=== PATIENT | male | born 1980 | race Caucasian/White ===

== ENCOUNTER 2018-12-22 08:40 | Emergency (ER) | payer BC, SELFPAY ==
[2018-12-22 08:41] VITALS: BP 152/95; PULSE 82; RESP 16; TEMP 36.7; O2SAT 99; BMI 26.7
--- NOTE | 2018-12-22 08:52 | CT_ITS ---
STUDY: CT ABDOMEN AND PELVIS WITHOUT CONTRAST REASON FOR EXAM: Male, 38 years old. Right flank pain. 3 week history of intermittent urinary difficulty. RADIATION DOSAGE (If Supplied By Facility): CTDIvol = ( 8.20 ) mGy, DLP = ( 485.83 ) mGycm TECHNIQUE: Transaxial images were obtained from the dome of the diaphragm to the symphysis pubis without oral contrast, and without intravenous contrast. Sagittal and coronal images were reconstructed. Individualized dose optimization techniques were used for this CT. COMPARISON: None. FINDINGS: The visualized lung bases are unremarkable. The visualized portions of the heart are within normal limits. Normal liver. Normal gallbladder and extrahepatic biliary system. Normal spleen. Normal pancreas. Normal bilateral adrenal glands. There is a 3.5 mm calculus in the distal portion of the right ureter just proximal to the ureterovesical junction. Mildly dilated right ureter. 3.6 mm calculus in the upper pole calyx of the left kidney. There is a small hiatal hernia. Normal small intestine. Normal colon. There are surgical clips in the region of the appendix consistent with a prior appendectomy. Small mesenteric lymph nodes are seen in the right lower quadrant. Normal abdominal aorta. Normal inferior vena cava. Normal retroperitoneum. Normal urinary bladder. Normal abdominal wall. Normal osseous structures. CT/Abdomen/Pelvis without Cont IMPRESSION: 3.5 mm calculus in the distal portion of the right ureter just proximal to the right ureterovesical junction. 3.6 mm nonobstructive calculus in the upper pole calyx of the left kidney. Electronically Signed: Matheus Fam MD at 9:42 EST , Service support ,
--- NOTE | 2018-12-22 08:56 | ED.DCSUM_ITS ---
- ER Visit Summary Date of Service: 12/22/18 Chief Complaint: Right flank pain History of Present Illness: The patient is a [address] prior kidney stone and gout. Also prior appendectomy. States in the last 3 weeks he had a couple episodes of right flank pain. Today it was more severe and radiated into his right groin. He denies any nausea, vomiting, diarrhea or fever. No hematuria or dysuria. No fever. Currently states his pain is not bad at all. Physical Examination: Well-appearing middle-age male. Vital signs are stable. He is afebrile. He does not look septic or toxic. He is in no acute distress. His is at bedside. HEENT exam unremarkable. Neck nontender no lymphadenopathy. Lungs clear to auscultation bilaterally. Heart regular rate and rhythm no murmur. Abdomen is soft and nontender. Normal bowel sounds no peritoneal signs. Extremities moves all 4. Neurovascularly intact. Back is nontender. External exam is nontender. Neurologically is awake and alert with no focal motor deficits. Test Results: Chemistry normal gap 5 creatinine 1.1. Urinalysis showed 150 macro blood 10-25 microscopic. No white cells. No nitrates. Urine consistent with kidney stone. CT flank study without contrast showed a 3.5 mm calculus in the distal right ureter just proximal to the right UVJ. No significant hydroureter or hydronephrosis. There is also a kidney stone seen in the left kidney. Emergency Department Course and Treatment: Patient with right flank pain with a prior kidney stone. CT flank place urinalysis and chemistry panel will be obtained. Currently patient does not want or need anything for pain. Patient doing well on repeat exam at 10 AM. Currently is not having any significant pain. Will be treated home with Toradol. Urine strainer. We went over all his test results. Treatment Plan: Toradol for pain. Strain his urine. Disposition: Discharge Impression: Acute right flank pain secondary to a 3.5 mm right distal ureteral calculi This note was generated with [place] dictation software. It may contain incorrect words, spelling, and punctuation that were not noted in review of the chart prior to signing ED Disposition - Plan for ED Patient: Referrals: Care Physician,No Primary [NON-STAFF] -
[2018-12-22 09:03] LABS: Color, Urine Yellow (Yellow); Glucose, Dipstick Normal (Normal); Ketone-Dipstick 5 mg/dl (Negative); Leukocyte Esterase-Dipstick Negative /ul (Negative); Nitrite-Dipstick Negative (Negative); Occult Blood-Urine 150 /ul (Negative); Protein-Dipstick 15 mg/dl (Negative); Specific Gravity, Urine 1.025 (1.002-1.030); Urine Bilirubin Dipstick Negative (Negative); Urine Clarity Clear (Clear); Urine Urobilinogen 1 mg/dl (Normal)
[2018-12-22 09:13] LABS: Bacteria 1+ /hpf (None Seen); Mucous, Urine 2+ /hpf (<or=2+); Red Blood Cells-Urine 10-25 SEEN /hpf (0-5); Squamous Epithelial Cells - UA 0-5 SEEN /hpf (0-5); White Blood Cells 0-5 SEEN /hpf (0-5)
[2018-12-22 09:20] LABS: Anion Gap 5 (5-15); BUN 13 mg/dL (7-18); BUN/Creat Ratio 11.3 RATIO (10-20); Calcium,Total 9.3 mg/dL (8.5-10.1); Chloride 107 mmol/L (98-107); Creatinine, Serum 1.15 mg/dL (0.70-1.30); EST Glomerular Filtration Rate 75 mL/min (>60); Est Glom Filt Rate - Afr Amer 91 mL/min (>60); Estimated Creatinine Clearance 104.83 ml/min; Glucose 97 mg/dL (74-106); Potassium 4.3 mmol/L (3.5-5.1); Sodium Level 141 mmol/L (136-145)
--- NOTE | 2018-12-22 10:15 | ED.DEP ---
ED Disposition - Plan for ED Patient: Disposition: Home or Assisted Living Instructions: ED Stone Renal W Colic Prescriptions: Ketorolac [Toradol] 10 mg PO Q4H #7 tab Referrals: Care Physician,No Primary [NON-STAFF] - Antonio Gallardo MD [STAFF PHYSICIAN] - 3-5 Days if not improving Additional Instructions: You have a 3-1/2 mm kidney stone just above your bladder on the right. This should pass. Toradol for pain. You may use Motrin but if he uses Motrin do not use Toradol and Motrin together. They are both anti-inflammatories. Strain your urine for passed stone. Plenty of fluids. Follow-up with the urologist Dr. Jovani Gallardo if not improving.
== END 2018-12-22 10:35 | disposition home or self-care (01) ==
PROVIDERS: Emergency Provider Emergency Medicine; Family Provider Family Medicine; PCP Family Medicine
DX: N20.2 Calculus of kidney with calculus of ureter (principal); Z72.0 Tobacco use
CPT/HCPCS: 74176; 80048; 81001; 99283; A4216

== ENCOUNTER → 2019-05-28 10:00 | Outpatient (CLI) | payer BC, SELFPAY ==
[2019-05-28 11:18] LABS: Absolute Lymphocyte Count 2.02 X10^3/uL (0.83-4.51); Absolute Neutrophil Count 3.9 X10^3/uL (2.0-7.7); Basophil# 0.06 X10^3/uL; Basophil% 0.9 % (0-1); Eosinophil# 0.22 X10^3/uL; Eosinophils% 3.2 % (0-5); Hematocrit 48.1 % (40-54); Hemoglobin 16.2 g/dL (13.0-16.5); Lymphocyte # 2.02 X10^3/ul (4.0); Lymphocyte % 29.8 % (19-41); Mean Corp Hgb Conc 33.7 g/dL (32-36); Mean Corpuscular Hgb 31.5 pg (27.0-32.0); Mean Corpuscular Volume 93.6 fL (80-94); Mean Platelet Vol. 10.7 fl (6.2-12.0); Monocyte# 0.52 X10^3/uL; Monocyte% 7.7 % (0-10); NRBC Flagged by Analyzer 0 % (0-5); Neutrophil # 3.94 X10^3/uL (2.7-7.7); Neutrophil % 58.1 % (47-70); Platelet Count 205 K/mm3 (150-450); RBC Distribution Width CV 12.5 % (11.6-14.6); RBC Distribution Width SD 42.8 fl (35.1-43.9); Red Blood Count 5.14 M/mm3 (4.6-6.2); White Blood Count 6.8 K/mm3 (4.4-11.0)
[2019-05-28 11:22] LABS: ALB/GLOB Ratio 1.1 RATIO (0.9-2.4); AST(SGOT) 25 U/L (15-37); Alanine Aminotransfer ALT/SGPT 43 U/L (16-61); Albumin, Serum 3.7 g/dL (3.2-5.0); Alkaline Phosphatase 67 U/L (45-117); Anion Gap 4 (5-15); BUN 9 mg/dL (7-18); BUN/Creat Ratio 8.7 RATIO (10-20); Calcium,Total 8.9 mg/dL (8.5-10.1); Chloride 107 mmol/L (98-107); Cholesterol 233 mg/dL (200); Creatinine, Serum 1.04 mg/dL (0.70-1.30); EST Glomerular Filtration Rate 84 mL/min (>60); Est Glom Filt Rate - Afr Amer 101 mL/min (>60); Globulin 3.4 g/dL (2.2-4.2); Glucose 90 mg/dL (74-106); High Density Lipoprotein 38 mg/dL; Potassium 3.9 mmol/L (3.5-5.1); Protein, Total 7.1 g/dL (6.4-8.2); Sodium Level 140 mmol/L (136-145); Triglycerides 169 mg/dL; Uric Acid 9.8 mg/dL (3.5-7.2); Very Low Density Lipoprotein 34 mg/dL (5-40)
== END ==
PROVIDERS: Family Provider Family Medicine; PCP Family Medicine; Referring Provider Family Medicine; Visit Provider Family Medicine
DX: Z00.00 Encounter for general adult medical examination without abnormal findings (principal); M10.9 Gout, unspecified
CPT/HCPCS: 36415; 80053; 80061; 84550; 85025

== ENCOUNTER 2021-02-10 14:02 | Outpatient (RCR) | payer BC, SELFPAY | END 2021-04-18 23:59 | LOC: IMMUN 14:02 | PROVIDERS: PCP Family Medicine; Referring Provider Family Medicine; Visit Provider Family Medicine | DX: Z23 Encounter for immunization (principal) | CPT/HCPCS: 0001A; 0002A; 91300 ==

== ENCOUNTER → 2021-06-13 07:27 | Outpatient (CLI) | payer BC, SELFPAY ==
[2021-06-13 08:59] LABS: ALB/GLOB Ratio 1.1 RATIO (0.9-2.4); AST(SGOT) 18 U/L (15-37); Alanine Aminotransfer ALT/SGPT 34 U/L (16-61); Albumin, Serum 3.9 g/dL (3.2-5.0); Alkaline Phosphatase 62 U/L (45-117); Anion Gap 3 (5-15); BUN 10 mg/dL (7-18); Calcium,Total 8.6 mg/dL (8.5-10.1); Chloride 106 mmol/L (98-107); Cholesterol 216 mg/dL (200); EST Glomerular Filtration Rate 87 mL/min (>60); Est Glom Filt Rate - Afr Amer 105 mL/min (>60); Globulin 3.4 g/dL (2.2-4.2); Glucose 99 mg/dL (74-106); High Density Lipoprotein 40 mg/dL; Potassium 3.7 mmol/L (3.5-5.1); Protein, Total 7.3 g/dL (6.4-8.2); Sodium Level 141 mmol/L (136-145); Triglycerides 128 mg/dL; Uric Acid 6.1 mg/dL (3.5-7.2); Very Low Density Lipoprotein 26 mg/dL (5-40)
== END ==
PROVIDERS: PCP Family Medicine; Referring Provider Family Medicine; Visit Provider Family Medicine
DX: Z00.00 Encounter for general adult medical examination without abnormal findings (principal); M10.9 Gout, unspecified; N20.9 Urinary calculus, unspecified
CPT/HCPCS: 36415; 80053; 80061; 82360; 84550

== ENCOUNTER 2021-07-14 05:28 | Day surgery (SDC) | payer BC, SELFPAY ==
[2021-07-14 05:55] VITALS: BP 137/78; PULSE 67; RESP 16; TEMP 36.7; O2SAT 100; BMI 23.3
[2021-07-14] MEDS: Lactated Ringers 1,000 ML 100 ML IV (06:09)
--- NOTE | 2021-07-14 06:09 | PCM.HP.BLA ---
History and Physical Date of Admission: 07/14/21 Intake Visit Reasons: Hernia Chief Complaint: bilat inguinal hernia Team Leader Required: No Is patient in pain?: No Allergies No Known Allergies Allergy (Verified 07/11/21 14:19) [facility] Medical History Bilateral inguinal hernia Gout Surgical History S/P appendectomy Family History Mother Diabetes Social History Smoking Status: Never smoker alcohol intake: never substance use type: does not use caffeine: Yes seatbelt use: always do you feel safe at home: Yes HPI HPI HPI: WENDY CABALLERO, is a 40 M who presents to the office today for surgical consultation regarding an inguinal hernia. The patient is referred by Dr. Renny Monique with a tentative diagnosis of bilateral inguinal hernias. A written copy of my surgical consult recommendations will return to him. The patient states that he has known about these hernias now for multiple years. At least 4 years and that he saw me when I was at the [facility]. 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 Recently however the right inguinal hernias become much more symptomatic. It is larger than the left but both are problematic. In addition he wanted to discuss the change of bowel habits. He describes his stool is more narrow and curvilinear in caliber. He has never had a colonoscopy. There is no suggestion of bright red blood. He has not had COVID-19. He has been vaccinated. He occasionally has nocturia. ROS General General: No weight change, appetite, fatigue, colon cancer, breast cancer or weakness HEENT HEENT: No difficulty swallowing, eye injury, eye surgery, swollen glands or hoarseness Endo Endocrine: No thyroid disease, diabetes mellitus, thyroid cancer, Hair loss, heat intolerance or cold intolerance Skin Skin: No rash or changing moles Breast Breast: No left breast lump, right breast lump, nipple discharge, breast pain, abnormal mammogram, abnormal US or breast enlargement Musc Musculoskeletal: Yes gout; No back problems, arthritis, rheumatoid arthritis or joint pain Cardio Cardiovascular: No murmur, pacemaker, heart disease, atrial fibrillation, high blood pressure, heart attack, heart stent, palpitations, shortness of breat with exertion or chest pain Psych Psychiatric: No depression, anxiety or hearing voices Resp Respiratory: No shortness of breath, No sleep apnea, No cough, No COPD, No asthma, No emphysema and No wheezing Gastro Gastrointestinal: Yes abdominal pain, No nausea or vomiting, No diarrhea, No constipation, No blood in stool, No acid reflux, No hemorrhoids, No ulcers, No gallbladder problem and No black,tarry stools [place] Hematologic: No blood thinners, No blood disorders, No bleeding, No anemia and No blood clots Neuro Neurologic: No system reviewed and no additional complaints, except as documented, No as per HPI, No abnormal gait, No abnormal hearing, No abnormal movements, No abnormal speech, No behavioral changes, No burning sensations, No confusion, No convulsions, No disequilibrium, No dizziness, No localized weakness, No frequent falls, No headache(s), No lack of coordination, No loss of vision, No memory loss, No numbness, No other visual disturbances, No radicular pain, No restless legs, No sensory deficit, No syncope, No tingling, No tremor(s), No weakness and No other Exam Const General: cooperative, healthy appearing, comfortable and no acute distress Nutritional Appearance: average body habitus Orientation: awake [facility] Head: normal to inspection Eyes General: appearance normal, both eyes and all related structures Neck Neck: normal visual inspection Chest Chest palpation & inspection: normal inspection of the chest Resp Effort & Inspection: normal respiratory effort Auscultation: clear to auscultation bilaterally Cardio Rate: regular rate Rhythm: regular rhythm GI Palpation: soft and no hepatosplenomegaly Other: Testicles are descended, slight varicocele on the left, significant right inguinal defect still reducible, slightly smaller and reducible left inguinal defect, mild bilateral groin folliculitis from here trimming Musc Cervical Spine: normal cervical lordosis Skin Other: Bilateral groin folliculitis Neuro General: patient alert and patient awake Extrem General: no calf tenderness Psych Appearance: grossly normal COVID (Procedure Consent) Procedure Criteria Procedure Criteria: Yes Elective The surgeon/proceduralist and patient have discussed in detail the risk of exposure to and/or potential harm posed by the COVID-19 virus with having a surgery/procedure at this time versus the risk of delaying the surgery/procedure. It is not possible to know either the risk of delaying the surgery or procedure or chance of getting an infection with perfect accuracy, but a joint decision was made between the patient and the surgeon/proceduralist to proceed at this time with the scheduled surgery/procedure as indicated on the consent form. Assessment and Plan Assessment and Plan (1) Hernia: (2) Change in bowel habit: Status: Acute (3) Bilateral inguinal hernia: Status: Acute Qualifiers: Obstruction and gangrene presence: without obstruction or gangrene Recurrence: non-recurrent Qualified Code(s): K40.20 - Bilateral inguinal hernia, without obstruction or gangrene, not specified as recurrent Plan - Dr. Ren Victoria MD: 40-year-old gentleman with change of bowel caliber. I recommend him a colonoscopy with possible biopsy or polypectomy as indicated. I described the technique, benefit, risk, alternatives. We will try to schedule and expedite the patient's care. The patient has bilateral groin folliculitis. For potential upcoming bilateral inguinal hernia surgery I recommend ceasing his shaving for the time being to help reduce this inflammatory change The patient has mild nocturia. I will initiate tamsulosin therapy 0.4 mg nightly to assist with the potential postoperative urinary retention. I recommended the patient laparoscopic bilateral inguinal hernia repair. I have discussed technique, benefit, risk, alternatives. He has had an opportunity to ask and have questions answered. 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 He is comfortable with this and would like to schedule and proceed as noted. I appreciate the opportunity of assisting with the surgical care Copy: Dr. Renny Victoria M.D., F.A.C.S. Insert H&P no changes Ren Victoria M.D., F.A.C.S.
--- NOTE | 2021-07-14 06:30 | COLBX_PTH ---
PATIENT: WENDY CABALLERO LOC: EN U#:[id number] AGE/SX: 40/M ROOM: RE07/14/[address]: Dr. Ren Victoria MD : 1980 BED: DIS: 07/14/2021 SPEC #: [id number] RECD: 07/14/21 10:50 STATUS: MADDIE DUFFYZoraida #: [id number] ADELOS: 07/14/21 06:[address]: Ren Victoria DEPT: SURGICAL PATHOLOGY RECD BY: Charo August ENTERED: 07/14/21 11:07 SP TYPE: COLON BX OTHR DR: Dr. Renny Monique DO Tissues: Transverse colon Procedures: Surgery Specimen Level IV HEADER OPERATION: Colonoscopy (MAC) PRE-OP DIAGNOSIS: Change in bowel habit, bilateral inguinal hernia TISSUE SUBMITTED: Biopsy of proximal transverse colon MICROSCOPIC DIAGNOSIS Proximal transverse colon, biopsy: Tubular adenoma. AM:am 9/7/21 MICROSCOPIC DESCRIPTION Slides are reviewed. GROSS DESCRIPTION Received in fixative is one container labeled with the patient's name and designated biopsy of proximal transverse colon. The specimen consists of multiple irregular fragments of light liang soft tissue that in aggregate measure 0.5 x 0.5 x 0.1 cm. The specimen is totally submitted in one cassette. / AM:moy 07/14/2021 TC:5 CPT: 66144
[2021-07-14 06:50] VITALS: BP 137/78; BP 81/56; PULSE 71; RESP 16; TEMP 36.1; O2SAT 94
--- NOTE | 2021-07-14 06:51 | OP.COLON_ITS ---
Patient Name: Jorge Quintanilla Procedure Date: 07/14/2021 6:17 AM Date of : 1980 Age: 40 Procedure: Colonoscopy Indications: Screening for colorectal malignant neoplasm Providers: Ren Victoria MD Medicines: See the Anesthesia note for documentation of the administered medications Patient Profile: Last Colonoscopy: none. The patient's first colonoscopy is today. Complications: No immediate complications. Procedure: Pre-Anesthesia Assessment: - Prior to the procedure, a History and Physical was performed, and patient medications and allergies were reviewed. The patient's tolerance of previous anesthesia was also reviewed. The risks and benefits of the procedure and the sedation options and risks were discussed with the patient. All questions were answered, and informed consent was obtained. Prior Anticoagulants: The patient has taken no previous anticoagulant or antiplatelet agents. ASA Grade Assessment: I - A normal, healthy patient. After reviewing the risks and benefits, the patient was deemed in satisfactory condition to undergo the procedure. After I obtained informed consent, the scope was passed under direct vision. Throughout the procedure, the patient's blood pressure, pulse, and oxygen saturations were monitored continuously. The Colonoscope was introduced through the anus and advanced to the cecum, identified by appendiceal orifice and ileocecal valve. The colonoscopy was performed without difficulty. The patient tolerated the procedure well. The quality of the bowel preparation was good. The ileocecal valve and the appendiceal orifice were photographed. Scope In: 6:30:58 AM Scope Withdrawal Time 0 hours 10 minutes 11 seconds Scope Out: 6:45:11 AM Total Procedure Duration Time 0 hours 14 minutes 13 seconds Findings: The digital rectal exam findings include non-thrombosed internal hemorrhoids and internal hemorrhoids that prolapse with straining, but spontaneously regress to the resting position (Grade II). Pertinent negatives include normal prostate (size, shape, and consistency). A 5 mm polyp was found in the proximal transverse colon. The polyp was sessile. The polyp was removed with a cold biopsy forceps. Resection and retrieval were complete. A few diverticula were found in the sigmoid colon. The exam was otherwise without abnormality. Impression: - Non-thrombosed internal hemorrhoids and internal hemorrhoids that prolapse with straining, but spontaneously regress to the resting position (Grade II) found on digital rectal exam. - One 5 mm polyp in the proximal transverse colon, removed with a cold biopsy forceps. Resected and retrieved. - Diverticulosis in the sigmoid colon. - The examination was otherwise normal. Recommendation: - Discharge patient to home. - Resume previous diet. - Continue present medications. - Repeat colonoscopy in 5 years for surveillance. - Telephone my office for pathology results in 1 week. Procedure Code(s): --- Professional --- 37925, Colonoscopy, flexible; with biopsy, single or multiple Diagnosis Code(s): --- Professional --- Z12.11, Encounter for screening for malignant neoplasm of colon K64.1, Second degree hemorrhoids D12.3, Benign neoplasm of transverse colon (hepatic flexure or splenic flexure) K57.30, Diverticulosis of large intestine without perforation or abscess without bleeding CPT copyright 2017 [employer]. All rights reserved. The codes documented in this report are preliminary and upon artillery officer review may be revised to meet current compliance requirements. Ren Victoria MD 07/14/2021 6:50:32 AM This report has been signed electronically. Number of Addenda: 0 Note Initiated On: 07/14/2021 6:17 AM
--- NOTE | 2021-07-14 06:52 | OP.CCLET_ITS ---
07/14/2021 Renny Monique [address] [place] [address] Re : Colonoscopy procedure for Jorge Quintanilla Dear Dr. Monique This procedure was performed on Wednesday, July 14, 2021. My impressions and recommendations are as follows: Impressions : - Non-thrombosed internal hemorrhoids and internal hemorrhoids that prolapse with straining, but spontaneously regress to the resting position (Grade II) found on digital rectal exam. - One 5 mm polyp in the proximal transverse colon, removed with a cold biopsy forceps. Resected and retrieved. - Diverticulosis in the sigmoid colon. - The examination was otherwise normal. Recommendations : - Discharge patient to home. - Resume previous diet. - Continue present medications. - Repeat colonoscopy in 5 years for surveillance. - Telephone my office for pathology results in 1 week. My findings are described in the full procedure note, which is enclosed. If I can be of further assistance, please feel free to contact me at Doctor phone number(s): Work: . Sincerely, Ren Victoria MD 07/14/2021 6:50:32 AM This report has been signed electronically.
[2021-07-14 06:55] VITALS: BP 137/78; BP 80/57; PULSE 66; RESP 16; O2SAT 95
[2021-07-14 07:00] VITALS: BP 137/78; BP 98/84; PULSE 70; RESP 18; O2SAT 99
[2021-07-14 07:05] VITALS: BP 107/77; BP 137/78; PULSE 59; RESP 18; TEMP 36.6; O2SAT 100
[2021-07-14 07:14] VITALS: BP 137/78
== END 2021-07-14 07:21 | disposition home or self-care (01) ==
LOC: EN 05:29 → AC 05:31
PROVIDERS: PCP Family Medicine; Referring Provider Family Medicine; Visit Provider Surgery
PROC: 0DJD8ZZ Inspection of Lower Intestinal Tract, Via Natural or Artificial Opening Endoscopic (ICD-10-PCS; CPT 45378; principal; 2021-07-14 06:25)
DX: Z12.11 Encounter for screening for malignant neoplasm of colon (principal); D12.3 Benign neoplasm of transverse colon; K64.1 Second degree hemorrhoids; K57.30 Diverticulosis of large intestine without perforation or abscess without bleeding; K40.20 Bilateral inguinal hernia, without obstruction or gangrene, not specified as recurrent; Z87.891 Personal history of nicotine dependence
CPT/HCPCS: 45380; 88305; J7120; J2405

== ENCOUNTER 2021-07-26 05:58 | Day surgery (SDC) | payer BC, SELFPAY ==
[2021-07-26] VITALS (7 sets, daily range): BP systolic 124–137; BP diastolic 72–100; PULSE 66–95; RESP 16; TEMP 36.2–36.9; O2SAT 95–100; BMI 23.6
[2021-07-26] MEDS: Lactated Ringers 1,000 ML 100 ML IV ×2 (06:52→09:02)
--- NOTE | 2021-07-26 06:55 | PCM.HP.BLA ---
History and Physical Date of Admission: 07/26/21 Intake Visit Reasons: Hernia Chief Complaint: bilat inguinal hernia Software Applications Architect Required: No Is patient in pain?: No Allergies No Known Allergies Allergy (Verified 07/11/21 14:19) [facility] Medical History Bilateral inguinal hernia Gout Surgical History S/P appendectomy Family History Mother Diabetes Social History Smoking Status: Never smoker alcohol intake: never substance use type: does not use caffeine: Yes seatbelt use: always do you feel safe at home: Yes HPI HPI HPI: WENYD CABALLERO, is a 40 M who presents to the office today for surgical consultation regarding an inguinal hernia. The patient is referred by Dr. Renny Monique with a tentative diagnosis of bilateral inguinal hernias. A written copy of my surgical consult recommendations will return to him. The patient states that he has known about these hernias now for multiple years. At least 4 years and that he saw me when I was at the [facility]. 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 Recently however the right inguinal hernias become much more symptomatic. It is larger than the left but both are problematic. In addition he wanted to discuss the change of bowel habits. He describes his stool is more narrow and curvilinear in caliber. He has never had a colonoscopy. There is no suggestion of bright red blood. He has not had COVID-19. He has been vaccinated. He occasionally has nocturia. ROS General General: No weight change, appetite, fatigue, colon cancer, breast cancer or weakness HEENT HEENT: No difficulty swallowing, eye injury, eye surgery, swollen glands or hoarseness Endo Endocrine: No thyroid disease, diabetes mellitus, thyroid cancer, Hair loss, heat intolerance or cold intolerance Skin Skin: No rash or changing moles Breast Breast: No left breast lump, right breast lump, nipple discharge, breast pain, abnormal mammogram, abnormal US or breast enlargement Musc Musculoskeletal: Yes gout; No back problems, arthritis, rheumatoid arthritis or joint pain Cardio Cardiovascular: No murmur, pacemaker, heart disease, atrial fibrillation, high blood pressure, heart attack, heart stent, palpitations, shortness of breat with exertion or chest pain Psych Psychiatric: No depression, anxiety or hearing voices Resp Respiratory: No shortness of breath, No sleep apnea, No cough, No COPD, No asthma, No emphysema and No wheezing Gastro Gastrointestinal: Yes abdominal pain, No nausea or vomiting, No diarrhea, No constipation, No blood in stool, No acid reflux, No hemorrhoids, No ulcers, No gallbladder problem and No black,tarry stools [place] Hematologic: No blood thinners, No blood disorders, No bleeding, No anemia and No blood clots Neuro Neurologic: No system reviewed and no additional complaints, except as documented, No as per HPI, No abnormal gait, No abnormal hearing, No abnormal movements, No abnormal speech, No behavioral changes, No burning sensations, No confusion, No convulsions, No disequilibrium, No dizziness, No localized weakness, No frequent falls, No headache(s), No lack of coordination, No loss of vision, No memory loss, No numbness, No other visual disturbances, No radicular pain, No restless legs, No sensory deficit, No syncope, No tingling, No tremor(s), No weakness and No other Exam Const General: cooperative, healthy appearing, comfortable and no acute distress Nutritional Appearance: average body habitus Orientation: awake [facility] Head: normal to inspection Eyes General: appearance normal, both eyes and all related structures Neck Neck: normal visual inspection Chest Chest palpation & inspection: normal inspection of the chest Resp Effort & Inspection: normal respiratory effort Auscultation: clear to auscultation bilaterally Cardio Rate: regular rate Rhythm: regular rhythm GI Palpation: soft and no hepatosplenomegaly Other: Testicles are descended, slight varicocele on the left, significant right inguinal defect still reducible, slightly smaller and reducible left inguinal defect, mild bilateral groin folliculitis from here trimming Musc Cervical Spine: normal cervical lordosis Skin Other: Bilateral groin folliculitis Neuro General: patient alert and patient awake Extrem General: no calf tenderness Psych Appearance: grossly normal COVID (Procedure Consent) Procedure Criteria Procedure Criteria: Yes Elective The surgeon/proceduralist and patient have discussed in detail the risk of exposure to and/or potential harm posed by the COVID-19 virus with having a surgery/procedure at this time versus the risk of delaying the surgery/procedure. It is not possible to know either the risk of delaying the surgery or procedure or chance of getting an infection with perfect accuracy, but a joint decision was made between the patient and the surgeon/proceduralist to proceed at this time with the scheduled surgery/procedure as indicated on the consent form. Assessment and Plan Assessment and Plan (1) Hernia: (2) Change in bowel habit: Status: Acute (3) Bilateral inguinal hernia: Status: Acute Qualifiers: Obstruction and gangrene presence: without obstruction or gangrene Recurrence: non-recurrent Qualified Code(s): K40.20 - Bilateral inguinal hernia, without obstruction or gangrene, not specified as recurrent Plan - Dr. Ren Victoria MD: 40-year-old gentleman with change of bowel caliber. I recommend him a colonoscopy with possible biopsy or polypectomy as indicated. I described the technique, benefit, risk, alternatives. We will try to schedule and expedite the patient's care. The patient has bilateral groin folliculitis. For potential upcoming bilateral inguinal hernia surgery I recommend ceasing his shaving for the time being to help reduce this inflammatory change The patient has mild nocturia. I will initiate tamsulosin therapy 0.4 mg nightly to assist with the potential postoperative urinary retention. I recommended the patient laparoscopic bilateral inguinal hernia repair. I have discussed technique, benefit, risk, alternatives. He has had an opportunity to ask and have questions answered. 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 He is comfortable with this and would like to schedule and proceed as noted. I appreciate the opportunity of assisting with the surgical care Copy: Dr. Renny Victoria M.D., F.A.C.S. I have re-examined the patient. There are no clinical changes since date of exam. Ren Victoria M.D., F.A.C.S.
--- NOTE | 2021-07-26 06:56 | EX.PCM.DISCH ---
Discharge Instructions Procedure General Surgery Diet Discharge Diet: Light diet - advance as tolerated (if you have questions about your diet instructions, please talk to you doctor.) Activity Discharge Activity: May Not Drive (for 3-5 days or while taking narcotic pain medicine.) May shower in (days): 1 Lifting Restrictions: 10 pounds Dressing / Incision Call your doctor if your incision/area has: Continuous Slow Oozing, Sudden Increased Bleeding, Increased Pain/ Swelling, Increased Redness and Foul Smelling Discharge Call your doctor if you observe: Fever of 101 or Higher Suture Line Care: Avoid Pulling/Pushing and Avoid Pinching/Bending Additional Dressing/Incision Instructions:: Change or remove dressing in 4 days. Leave steri-strips in place for 1 week. Follow Up Care Please Follow Up With: Ren Victoria MD When: Call [phone] to make an appointment to be seen in about 10 days. Test Results: Test results from this visit will be discussed in further detail at your follow-up appointment, if applicable. Discharge Plan Admission Primary Reason for Your Visit: Bilateral inguinal hernias Attending Provider: Ren Victoria Primary Care Provider: Renny Monique Discharge Orders/Prescriptions Prescriptions: No Action tamsulosin [Flomax] 0.4 mg capsule 0.4 mg PO QHS Qty: 30 RF: 0 allopurinol 100 MG tablet 100 mg PO DAILY RF: 0 escitalopram oxalate [Lexapro] 10 mg Tablet 10 mg PO DAILY RF: 0 Referrals / Follow Up: Renny Monique DO [Primary Care Provider] - Disposition Disposition (needs filled in before D/C Order can be placed): Home, Self Care
[2021-07-26] MEDS: Cefazolin 2 GM in 0.9% Normal Saline 100 ML IV (07:19)
[2021-07-26] MEDS: Bupivacaine Mpf 0.5% 30 ML VIAL (08:35)
--- NOTE | 2021-07-26 08:37 | PCM.OPRPT ---
Problems Associated Problem List Diagnoses (1) Bilateral inguinal hernia: Report of Operation Date of Procedure: 07/26/21 Pre-Operative Diagnosis: Bilateral inguinal hernias Post-Operative Diagnosis: Bilateral direct inguinal hernias Surgery/Procedure Performed:: Laparoscopic bilateral inguinal herniorrhaphy Left Bard 3D large max lot number [id number] reference #[id number]. Date of expiration 02/05/2026 Right Bard 3D max large mesh lot number [id number], reference #[id number], expiry date 01/08/2026 Secure strap: Lot number [id number], expiry date October 2022 Description of Surgical Findings:: Timeout and informed consent was obtained. Patient was taken to the operating placed on the table underwent general endotracheal inpatient seizure. The abdomen sterilely prepped draped. Ancef 2 g were given and him is preoperatively. 0.5% Marcaine was used as local anesthetic. Throughout the procedure total of 30 cc was used. Skin sites were preanesthetized the vertical infraumbilical incision was created holding sutures of 0 Vicryl placed a varies needle inserted saline drop test performed the abdomen was insufflated with CO2 to a pressure of 10 mmHg pressure. A 10 mm trocar inserted. 10 mm laparoscope inserted. 5 mm ports were placed in the right left lower quadrants. Under laparoscope control ilioinguinal nerve blocks were performed bilaterally. There were bilateral direct inguinal defects noted. The peritoneum superior lateral to the internal ring on the right was incised carried medially the peritoneum was completely dissected free the direct indirect and femoral area clearly identified. Similar dissection was performed on the left. Bilateral direct defects noted. A large Bard 3D max mesh was placed on the left. It was secured with 4 secure strap tacks laterally superiorly and medially. The mesh was then placed on the right with a Bard 3D max large right mesh. It too was placed was to cover the direct indirect and femoral areas. It overlapped the mesh from the left. It was secured in the middle with the secure strap superiorly and laterally. Again approximately 4-5 tacks were used. Excellent position was felt to been achieved with excellent coverage of the defect area. The peritoneum was approximated to itself using secure strap and hemolock clips. Complete obliteration to the mesh was achieved. Sponge and instrument and needle counts were reported to the surgeon to be correct. The abdomen was allowed to deflate of CO2 through an antiviral valve. The fascia at the umbilicus broken up with 0 Vicryl [id number] suture. Skin edges approximated 4 Monocryl subdermal stitches. Steri-Strips Telfa OpSite dressings applied. Sponge and instrument and needle counts were reported to the surgeon to be correct. Specimens none. Drains none. Blood loss minimal. The patient was taken to recovery area in satisfactory edition without apparent complication Ren Victoria M.D., F.A.C.S. Surgeon: Ren Victoria
[2021-07-26] MEDS: HYDROcodone Bitartrate/Apap 5/325 Tablet PO (10:23)
== END 2021-07-26 13:31 | disposition home or self-care (01) ==
LOC: SDC 06:56 → AC 07:08
PROVIDERS: PCP Family Medicine; Referring Provider Surgery; Visit Provider Surgery
PROC: (CPT 49650; principal; 2021-07-26 07:10)
DX: K40.20 Bilateral inguinal hernia, without obstruction or gangrene, not specified as recurrent (principal); R19.4 Change in bowel habit; R35.1 Nocturia; M10.9 Gout, unspecified; F32.9 Major depressive disorder, single episode, unspecified; F41.9 Anxiety disorder, unspecified; Z79.899 Other long term (current) drug therapy; Z87.891 Personal history of nicotine dependence
CPT/HCPCS: 00840; 49650; J7120; A4216; C1781; J2405

== ENCOUNTER 2023-01-30 08:01 | Emergency (ER) | payer BC, SELFPAY ==
[2023-01-30 08:02] VITALS: BP 133/55; PULSE 88; RESP 14; TEMP 36.1; O2SAT 97; BMI 26.2
--- NOTE | 2023-01-30 08:11 | EX.ED.DYSGE1 ---
HPI History of Present Illness Chief Complaint: Lower Extremity Injury Narrative Narrative: 42-year-old male here with left lower leg pain. Patient complains of pain, swelling in the left knee. States has history of gouty arthritis but usually presents in his right first toe. States for the last 3 to 4 days he has had left knee pain swelling with no inciting event. Denies any falls or recent trauma. Patient denies active cancer, being bedridden for greater than 3 days, denies unilateral leg swelling, denies any varicose veins, denies any calf tenderness, denies any edema. Denies major surgery within 12 weeks, recent paralysis, previous DVT. [facility] Medical History (Updated 01/30/23 @ 09:[address] Bradford Birmingham, ) Anxiety and depression Bilateral inguinal hernia Former smoker Gout Nicotine dependence Home Medications allopurinol 100 mg tablet 100 mg PO DAILY GOUT 12/22/18 [History Last Taken 12/22/18 100 MG] tamsulosin 0.4 mg capsule (Flomax) 0.4 mg PO QHS #30 caps 07/11/21 [Rx Last Taken Unknown] escitalopram oxalate 10 mg tablet (Lexapro) 10 mg PO DAILY 07/12/21 [History Last Taken Unknown] oxycodone 5 mg capsule 5 mg PO Q6H PRN pain 3 days #12 caps 01/30/23 [Rx Last Taken Unknown] Allergy/AdvReac Type Severity Reaction Status Date / Time No Known Allergies Allergy Verified 01/30/23 08:02 Family History Mother Diabetes Surgical History History of colonoscopy S/P appendectomy Social History Smoking Status: Former smoker alcohol intake: never substance use type: does not use caffeine: Yes seatbelt use: always do you feel safe at home: Yes ROS ROS ED ROS Narrative Constitutional: Denies fever HEENT: Denies sore throat Neck: Denies neck pain Cardiovascular: Denies chest pain, syncope Respiratory: Denies shortness of breath GI: Denies nausea vomiting or abdominal pain : Denies changes in urinary habits Musculoskeletal: Left leg pain, left knee pain and swelling Neurologic: Denies numbness weakness or loss of sensation Skin denies rash EXAM Physical Exam Narrative Exam Narrative: Nursing triage notes reviewed, Vital signs reviewed Constitutional: please see [facility] HENT: MMM Eyes: Pupils equal round and reactive to light, Extraocular muscles intact Neck: No stridor, no JVD, full neck ROM Lungs: Clear to auscultation, No wheezing or rales. No increased work of breathing, no conversational dyspnea, no accessory muscle use, no nasal flaring. No respiratory distress noted Heart: Regular rate and rhythm, No murmurs, No rubs and No gallops, 2+ distal pulses (radial, femoral, posterior tibial) in all extremities Abdomen: Soft, there is no tenderness, rigidity, rebound or guarding, no obvious peritoneal signs, no palpable pulsatile abdominal masses, no auscultated abdominal bruit : No CVAT Extremities: No edema Neuro: Intact sensation L1-S1 dermatomal distributions. Intact 5/5 strength in hip flexion (T12-L3). Knee extension (L2-L4). Ankle dorsiflexion (L4-L5). Ankle plantar flexion (S1). Great toe extension (L5). 2+ patellar and Achilles DTRs. Skin: No rash or lesions noted Const Vital Signs: 01/30/23 08:02 Temperature 97 F L Temperature Source Temporal Pulse Rate 88 Respiratory Rate 14 Blood Pressure 133/55 H Blood Pressure Mean 81 Pulse Ox 97 Oxygen Delivery Method Room Air [facility] [place] Narrative Medical decision making narrative: Chief Complaint: Left leg pain External records reviewed: No recent advanced imaging of the involved extremity I considered the following differential diagnosis: DVT, cellulitis, fracture dislocation, compartment syndrome, septic arthritis, contusion or other musculoskeletal injury The patient was hemodynamically stable, afebrile, nontoxic-appearing. Exam with slight joint effusion on the left, no overlying cellulitis. There is no trauma to suggest fracture dislocation. Compartments are soft. I did consider septic arthritis and had a shared decision-making discussion about risk and benefits of arthrocentesis. Patient did not feel risk outweighed benefit and refused arthrocentesis at this time. I suspect the patient suffered regarding arthritis in her left knee. Gave anti-inflammatories, Decadron and narcotic pain medicine here. Obtained x-ray to rule out fracture dislocation or other bony abnormalities also obtain DVT ultrasound. X-ray of the left knee shows a large effusion but no obvious fracture dislocation or other bony abnormality. DVT ultrasound showed no evidence of DVT. Had another shared decision-making discussion with the patient he again refused arthrocentesis. Gave home prednisone, oxycodone instructed to take ibuprofen and instructed to continue take allopurinol Factors affecting care: None Social determinants of health: Former smoker, history of anxiety History obtained from others: None Shared decision making: I will have a discussion with the patient and or visitors regarding risk/benefits of further testing or admission. They will be made aware of of the risk/benefits inherent in this decision they will be given the opportunity to voice understanding. Consults: None Radiography Diagnostic Testing: Clinical Impression(s) from Imaging Studies Knee X-Ray 01/30/23 08:50 IMPRESSION: Large joint effusion. Prepatellar soft tissue swelling. Electronically Signed: Matheus Fam MD at 9:07 EDT Reading Location ID and State: [address] [place] [address] , Service support , Discharge Plan Triage Chief Complaint: Lower Extremity Injury ED Provider: Bradford Birmingham Dx/Rx/DC Orders Clinical Impression: Gout, Acute pain of left knee, Acute joint effusion Instructions: ED Gout, ED Gout Diet Prescriptions: New oxycodone 5 mg capsule 5 mg PO Q6H PRN (Reason: pain) 3 Days Qty: 12 0RF No Action tamsulosin [Flomax] 0.4 mg capsule 0.4 mg PO QHS Qty: 30 0RF allopurinol 100 MG tablet 100 mg PO DAILY Label Comments: TAKE 1 TABLET BY MOUTH EVERY DAY escitalopram oxalate [Lexapro] 10 mg Tablet 10 mg PO DAILY Stand Alone Forms: ED Work / School Excuse Primary Care Provider: Renny Monique Referrals: Renny Monique DO [Primary Care Provider] - Disposition Disposition: Home, Self Care
--- NOTE | 2023-01-30 08:25 | VDLE_ITS ---
Reason For Study: Left leg swelling Procedure LEFT This is a venous duplex using B-mode, color GSV is normal. flow and spectral Doppler. CFV is compressible, spontaneous, phasic, Exam performed portable in ED. competent, and demonstrates normal A preliminary report was called and/or faxed augmentation. to ED. FV is compressible, spontaneous, phasic, competent and demonstrates normal augmentation. POP V is compressible, spontaneous, phasic, competent and demonstrates normal augmentation. T/P Trunk is compressible. PTV is compressible. LT PerV is compressible. Large nonvascularized structure noted in the left popliteal fossa that measures 2.84 x 4.73 cm. VL/Venous Duplex US, Unilateral Interpretation Summary There is no evidence of left lower extremity deep vein thrombosis. Left great s aphenous vein appears patent and compressible segmentally. Left popliteal fossa nonvascular complex c ystic 2.84 x 4.73 cm structure. Clinical correlation would be appropriate. Ordering Physician: Bradford Birmingham Referring Physician: Renny Monique Performed By: Azra Bentley RVT
[2023-01-30] MEDS: Ibuprofen 200 MG Tablet 400 MG PO (08:34)
[2023-01-30] MEDS: predniSONE 20 MG Tablet 40 MG PO (08:34)
--- NOTE | 2023-01-30 08:50 | RAD_ITS ---
STUDY: X-RAY - LEFT KNEE REASON FOR EXAM: Male, 42 years old. Left knee pain and swelling. No known. TECHNIQUE: 2 view(s) of the knee. COMPARISON: None. FINDINGS: Normal visualized distal femur. Normal visualized proximal tibia and fibula. Normal proximal tibiofibular articulation. Normal medial femorotibial compartment. Normal lateral femorotibial compartment. Normal patellofemoral articulation. Large joint effusion. Prepatellar soft tissue swelling. RAD/Knee 1 or 2 Views IMPRESSION: Large joint effusion. Prepatellar soft tissue swelling. Electronically Signed: Matheus Fam MD at 9:07 EDT ,
[2023-01-30 10:13] VITALS: PULSE 76; RESP 18; O2SAT 100
== END 2023-01-30 10:13 | disposition home or self-care (01) ==
PROVIDERS: Emergency Provider Emergency Medicine; PCP Family Medicine; Visit Provider Emergency Medicine
DX: M25.562 Pain in left knee (principal); M10.9 Gout, unspecified; M25.462 Effusion, left knee; Z87.891 Personal history of nicotine dependence
CPT/HCPCS: 73560; 93971; 99283

== ENCOUNTER → 2025-05-10 | Outpatient (CLI) | payer BC, SELFPAY ==
[2025-05-10 15:39] LABS: Uric Acid 5.5 mg/dL (3.5-7.2)
== END | disposition home or self-care (01) ==
LOC: BFHLAB 13:05
PROVIDERS: PCP Family Medicine; Visit Provider Family Medicine
DX: M10.9 Gout, unspecified (principal)
CPT/HCPCS: 36415; 84550